=== PATIENT | female | born 1960 | race Caucasian/White ===

== ENCOUNTER 2017-04-23 06:52 | Day surgery (SDC) | payer BC ==
[2017-04-23] MEDS ORDERED: PROPOFOL 500 MG/50 ML EMU IV ONE (07:31)
[2017-04-23] MEDS ORDERED: LIDOCAINE HCL 1% MPF SOL ONE (07:31)
[2017-04-23 08:48] VITALS: TEMP 97.4
[2017-04-23 08:55] VITALS: O2SAT 96
[2017-04-23 09:08] VITALS: PULSE 69
[2017-04-23 09:17] VITALS: BP 122/80; RESP 20
== END 2017-04-23 09:20 | disposition home or self-care (01) ==
LOC: SURG 06:52
PROVIDERS: ATTEND Internal Medicine Gastroenterology
DX: R10.12 Left upper quadrant pain (principal); K21.9 Gastro-esophageal reflux disease without esophagitis; K22.70 Barrett's esophagus without dysplasia; K44.9 Diaphragmatic hernia without obstruction or gangrene
CPT/HCPCS: 99001; J2001; J2704